=== PATIENT | female | born 1965 | race Caucasian/White ===

== ENCOUNTER 2017-04-22 18:47 | Emergency (ER) | payer MEDICAID, OTHER ==
[~2017-04-22] VITALS: Ht 170.2 cm; Wt 49.9 kg
[~2017-04-22 18:47] MED LIST: CLON0.2T PO; GABA800T2 PO; MULT-331 PO; QUET400T PO
[2017-04-22 19:09] LABS: *BILIRUBIN,URIN NEGATIVE (NEGATIVE); *BLOOD, URINE NEGATIVE (NEGATIVE); *CLARITY,URINE TURBID (CLEAR); *COLOR,URINE YELLOW (YELLOW); *KETONES,URINE NEGATIVE (NEGATIVE); *PROTEIN,URINE TRACE (NEGATIVE); LEUKOCYTE ESTERASE ,URINE TRACE (NEGATIVE); NITRITE, URINE POSITIVE (NEGATIVE); PH,URINE 7.5 (5.0-8.0); UGLUCOSE NEGATIVE (NEGATIVE)
[2017-04-22 19:12] LABS: *URINE HCG, QUAL NEGATIVE (NEGATIVE)
[2017-04-22 19:13] LABS: RBC,URINE 0-3 /HPF (0-3)
[2017-04-22 19:14] LABS: BACTERIA,URINE MANY /HPF (NONE SEEN); SQUAMOUS EPITHELIAL CELL,UR FEW /HPF (NONE SEEN); URINE AMORPHOUS URATE MANY /HPF
[2017-04-22] MEDS ORDERED: IV NORMAL SALINE 1000 ML BAG IV ONE (19:15)
[2017-04-22 19:30] LABS: BASOPHILS % (AUTO) 0.8 % (0.0-2.0); EOSINOPHILS # (AUTO) 0.1 K/uL (0.0-0.7); EOSINOPHILS % (AUTO) 1.1 % (0.0-7.0); HEMATOCRIT 37.6 % (37-47); HEMOGLOBIN 12.3 G/DL (12.0-16.0); LYMPHOCYTES # (AUTO) 1.7 K/UL (0.8-4.8); LYMPHOCYTES % (AUTO) 31.2 % (20.5-51.5); MEAN CORPUSCULAR HEMOGLOBIN 31.1 UUG (27.0-31.0); MEAN CORPUSCULAR HGB CONC 33 g/dL (32.0-37.0); MEAN CORPUSCULAR VOLUME 95.2 FL (81.0-99.0); MONOCYTES # (AUTO) 0.5 K/UL (0.1-1.30); MONOCYTES % (AUTO) 9.8 % (0.0-11.0); NEUTROPHILS # (AUTO) 3.1 K/UL (1.8-8.9); NEUTROPHILS % (AUTO) 57.1 % (38.5-71.5); PLATELET COUNT (AUTO) 88 K/UL (150-450); RED BLOOD CELL COUNT(AUTO) 3.96 MIL/UL (4.2-5.4); WHITE BLOOD COUNT (AUTO) 5.4 K/UL (4.0-11.2)
[2017-04-22 19:41] LABS: BILIRUBIN,DIRECT 0.6 mg/dL (0.0-0.2); BILIRUBIN,TOTAL 0.7 mg/dL (0.2-1.0); CREATININE 0.9 mg/dL (0.6-1.3); TOTAL PROTEIN, SERUM 8.1 g/dL (6.4-8.2)
--- NOTE | 2017-04-22 20:20 | NUR ---
Patient ate dinner with no N/V noted
--- NOTE | 2017-04-22 20:40 | NUR ---
IV removed. Catheter intact and site benign. Pressure and 4x4 gauze applied to site. No bleeding noted.
--- NOTE | 2017-04-22 20:47 | NUR ---
Patient discharged to home in stable conditon. Written and verbal after care instructions given. Patient verbalizes understanding of instructions.
[2017-04-22 20:48] VITALS: BP 111/75
== END 2017-04-22 20:49 | disposition home or self-care (01) ==
LOC: ER 18:49
DX: N39.0 Urinary tract infection, site not specified (principal); I50.9 Heart failure, unspecified; F42.9 Obsessive-compulsive disorder, unspecified
CPT/HCPCS: 36415; 83690; 84703; 85025; 87077; 87086; A4663; J7030

== ENCOUNTER 2017-09-17 10:50 | Emergency (ER) | payer OTHER ==
[~2017-09-17] VITALS: Ht 170.2 cm; Wt 56.2 kg
[2017-09-17] MEDS ORDERED: ISENTRESS PO (11:15)
--- NOTE | 2017-09-17 11:20 | NUR ---
DR DREW AT BEDSIDE FOR EVALUATION.
--- NOTE | 2017-09-17 11:32 | NUR ---
PT WAS D/C TO HOME. D/C INSTRUCTIONS GIVEN TO THE PT.
[2017-09-17 11:33] VITALS: BP 121/63
== END 2017-09-17 11:34 | disposition home or self-care (01) ==
LOC: ER 10:50
DX: R05 Cough (principal); I11.0 Hypertensive heart disease with heart failure; I50.9 Heart failure, unspecified; F11.10 Opioid abuse, uncomplicated; Z88.8 Allergy status to other drugs, medicaments and biological substances; Z79.899 Other long term (current) drug therapy
CPT/HCPCS: 71045; A4663